=== PATIENT | female | born 1965 | race Caucasian/White ===

== ENCOUNTER → 2020-12-14 08:17 | Outpatient (CLI) | payer OTHER, SELFPAY ==
[2020-12-14 10:49] LABS: COVID19 -Nasal RAPID Negative (Negative)
== END ==
PROVIDERS: Visit Provider Nurse Practitioner
DX: Z20.822 Contact with and (suspected) exposure to COVID-19 (principal)
CPT/HCPCS: 87635

== ENCOUNTER → 2020-12-18 08:14 | Outpatient (CLI) | payer OTHER, SELFPAY ==
[2020-12-18 12:45] LABS: COVID19 -Nasal RAPID Negative (Negative)
== END ==
PROVIDERS: Visit Provider Nurse Practitioner Family
DX: Z20.822 Contact with and (suspected) exposure to COVID-19 (principal)
CPT/HCPCS: 87635

== ENCOUNTER → 2020-12-25 08:04 | Outpatient (CLI) | payer OTHER, SELFPAY ==
[2020-12-25 11:42] LABS: COVID19 -Nasal RAPID Negative (Negative)
== END ==
PROVIDERS: Visit Provider Nurse Practitioner Family
DX: Z20.822 Contact with and (suspected) exposure to COVID-19 (principal)
CPT/HCPCS: 87635

== ENCOUNTER → 2021-01-18 13:29 | Outpatient (CLI) | payer OTHER, SELFPAY | PROVIDERS: Referring Provider Internal Medicine; Visit Provider Internal Medicine | DX: Z23 Encounter for immunization (principal) | CPT/HCPCS: 90471; 90686 ==

== ENCOUNTER → 2021-03-29 11:15 | Outpatient (CLI) | payer OTHER, SELFPAY ==
[2021-03-29 11:51] LABS: COVID19 -Nasal RAPID Negative (Negative)
== END ==
PROVIDERS: Referring Provider Nurse Practitioner Family; Visit Provider Nurse Practitioner Family
DX: Z20.822 Contact with and (suspected) exposure to COVID-19 (principal)
CPT/HCPCS: 87635

== ENCOUNTER → 2022-03-20 16:08 | Outpatient (CLI) | payer OTHER, SELFPAY | PROVIDERS: Referring Provider Internal Medicine; Visit Provider Internal Medicine | DX: Z23 Encounter for immunization (principal) | CPT/HCPCS: 90471; 90686 ==

== ENCOUNTER → 2023-01-09 16:15 | Outpatient (CLI) | payer OTHER, SELFPAY | PROVIDERS: PCP Physician Assistant; Referring Provider Family Medicine; Visit Provider Family Medicine | DX: Z23 Encounter for immunization (principal) | CPT/HCPCS: 90471; 90686 ==

== ENCOUNTER 2023-01-10 04:38 | Emergency (ER) | payer OTHER, SELFPAY ==
[2023-01-10] VITALS (8 sets, daily range): BP systolic 134–185; BP diastolic 71–87; PULSE 72–88; RESP 17; TEMP 36.6; O2SAT 94–100; BMI 25.2
[2023-01-10 05:08] LABS: Add Manual Diff / Slide Review NO; Basophils Absolute Auto 100 /uL (0-100); Eosinophils Absolute Auto 300 /uL (0-450); Hematocrit 35.5 % (36-46); Hemoglobin 12.3 g/dL (12.0-16.0); Lymphocytes Absolute Auto 1800 /uL (1100-4500); Lymphocytes Percent Auto 27.8 % (25-40); Mean Corpuscular HGB Conc 34.6 % (30-36); Mean Corpuscular Hemoglobin 34.3 PG (26-34); Mean Corpuscular Volume 99.1 fL (80-100); Monocytes Absolute Auto 1000 /uL (0-900); Monocytes Percent Auto 15.7 % (3-14); Neutrophils Absolute Auto 3300 /uL (1500-7000); Neutrophils Percent Auto 51.5 % (50-75); Platelet Count 402 X10^3/uL (150-400); Red Blood Cell Count 3.58 X10^6/uL (4.0-5.2); Red Cell Distribution Width 16.7 % (11.6-14.8); White Blood Cell Count 6.4 X10^3/uL (4.5-11.0)
--- NOTE | 2023-01-10 05:15 | ED.EXTPRO ---
HPI - Extremity Problem <Sheng Espino DO - Last Filed: 01/14/23 01:33> General Chief complaint: Extremity Problem,Nontraumatic Stated complaint: massive cramps in arms, hands, feet Time Seen by Provider: 01/10/23 04:48 Source: patient Mode of arrival: Ambulatory History of Present Illness HPI Narrative: 57-year-old female nonsmoker with history of breast cancer on daily chemotherapy presents with the chief complaint of cramping in her hands neck and back. She states that she is had frequent loose stools and is concerned that her electrolytes are off, in the past she is had similar symptoms when her magnesium was low. She has been taking oral magnesium 400 mg but it has not made an impact. She denies any fever chills. She has no chest pain or shortness of breath. She denies nausea, vomiting . Related Data Home Medications Medication Instructions Recorded Confirmed capecitabine 500 mg tablet 1,000 mg PO BID 05/15/22 05/15/22 diclofenac sodium 1 % topical gel 2 g topical QID 05/15/22 05/15/22 famotidine 20 mg tablet 20 mg PO BID 05/15/22 05/15/22 letrozole 2.5 mg tablet 2.5 mg PO DAILY 05/15/22 05/15/22 levofloxacin 500 mg tablet 500 mg PO DAILY 05/15/22 05/15/22 methocarbamol 500 mg tablet 500 mg PO TID 05/15/22 05/15/22 zolpidem 5 mg tablet 5 mg PO BEDTIME PRN 05/15/22 05/15/22 Previous Rx's Medication Instructions Recorded metronidazole 0.75 % (37.5 mg/5 1 appful vaginal BEDTIME 5 days 05/15/22 gram) vaginal gel #70 grams Allergies Allergy/AdvReac Type Severity Reaction Status Date / Time hydrocodone Allergy Anxiety Verified 05/15/22 08:13 morphine Allergy Hives Verified 05/15/22 08:13 Penicillins Allergy Anaphylaxis Verified 05/15/22 08:13 Review of Systems <DO Leon Ray Last Filed: 01/14/23 01:33> Review of Systems Narrative: GENERAL: Denies chills, fatigue, malaise, fever, sweats. HEENT: Denies sinus pain, ear pain, sore throat, difficulty swallowing, dizziness. RESPIRATORY: Denies dyspnea, cough, wheezing, hemoptysis, sputum. CARDIOVASCULAR: Denies chest pain, palpitations, orthopnea, edema, GASTROINTESTINAL: see HPI : Denies dysuria, frequency, incontinence, hematuria, urinary retention. MUSCULOSKELETAL: see HPI SKIN: Denies rash, skin lesions, or other NEUROLOGIC: Denies weakness, headache, numbness, change in speech, confusion, seizures, incoordination. PSYCHIATRIC: No concerning psychosocial issues. 12 point review of systems is negative except for those stated above Patient History <Sheng Espino DO - Last Filed: 01/14/23 01:33> Medical History (Updated 01/10/23 @ 06:31 by Sheng Espino DO) Alopecia (~2021) Disease of spine (~1997) Foot pain Chicken pox (~1969) GERD (gastroesophageal reflux disease) (~1999) Diabetes mellitus (~2012) Hypertension Hyperlipidemia Breast cancer Surgical History (Updated 05/22/22 @ 19:42 by Melanie Suero) Anesthesia S/P lumpectomy, right breast (~2010) Ectopic (~1990) S/P total hysterectomy and BSO (bilateral salpingo-oophorectomy) (~2011) Social History Smoking Status: Never smoker Smoking Status: Never smoker Substance Use Type: does not use Exam <Sheng Espino DO - Last Filed: 01/14/23 01:33> Narrative Exam Narrative: GENERAL: [57] year old patient appears stated age. Well-developed patient, in mild distress. HEAD: Atraumatic. Normocephalic. EYES: Pupils equal round and reactive. Extraocular motions intact. No scleral icterus. No injection or drainage. ENT: Nose without bleeding, purulent drainage. Throat without erythema, tonsillar hypertrophy or exudate. Airway patent. NECK: Trachea midline. Non tender CARDIOVASCULAR: Regular rate and rhythm without murmurs, gallops, or rubs. RESPIRATORY: Clear to auscultation. Breath sounds equal bilaterally. No wheezes, rales, or rhonchi. GASTROINTESTINAL: Abdomen soft, non-tender, nondistended. EXTREMITIES: No edema or joint tenderness. BACK: Nontender without deformity or crepitance. No flank tenderness. NEURO: AOx3. SKIN: No rash or erythema of visible areas Initial Vital Signs Initial Vital Signs: Vital Signs Pulse Rate 88 01/10/23 04:44 Blood Pressure 185/87 H 01/10/23 04:44 Pulse Oximetry 98 01/10/23 04:44 Oxygen Delivery Method Room Air 01/10/23 04:44 <Sonia Rodriguez DO - Last Filed: 01/10/23 12:20> Initial Vital Signs Initial Vital Signs: Vital Signs Pulse Rate 88 01/10/23 04:44 Blood Pressure 185/87 H 01/10/23 04:44 Pulse Oximetry 98 01/10/23 04:44 Oxygen Delivery Method Room Air 01/10/23 04:44 Course <Sheng Espino, DO - Last Filed: 01/14/23 01:33> Orders Ordered: Discontinued Medications Heparin Sodium (Porcine) (Heparin 500 Unit/5 Ml Port Flush) 500 unit IV PRN PRN PRN Reason: Flush Last Admin: 01/10/23 06:59 Dose: 500 unit Documented By: MING Sodium Chloride (Normal Saline 0.9%) 1,000 mls @ 1,000 mls/hr IV BOLUS ONE Stop: 01/10/23 06:13 Last Infusion: 01/10/23 06:53 Dose: Infused Documented By: Admin: 01/10/23 05:25 Dose: 1,000 mls/hr Documented By: BEN POTASSIUM CHLORIDE IN WATER (Potassium Cl 10 Meq/100 Ml Marifer) 10 meq in 100 mls @ 100 mls/hr IV Q1H JAXSON Stop: 01/10/23 07:44 Last Admin: 01/10/23 07:00 Dose: Not Given Documented By: Infusion: 01/10/23 06:53 Dose: Infused Documented By: Admin: 01/10/23 05:44 Dose: 100 mls/hr Documented By: BEN Potassium Chloride (Potassium Chloride 20 Meq/15 Ml Udc) 40 meq PO NOW ONE Stop: 01/10/23 05:36 Last Admin: 01/10/23 05:46 Dose: 40 meq Documented By: BEN Vital Signs Vital signs: Vital Signs - 8 hr 01/10/23 04:44 01/10/23 04:44 01/10/23 04:45 Temperature 98 F Pulse Rate 88 84 Respiratory Rate 17 Blood Pressure 185/87 H 185/87 H Pulse Oximetry 98 99 Oxygen Delivery Method Room Air Room Air 01/10/23 04:59 01/10/23 04:59 01/10/23 05:00 Temperature Pulse Rate 84 Respiratory Rate Blood Pressure 152/78 H 143/75 H Pulse Oximetry 97 Oxygen Delivery Method Room Air 01/10/23 05:00 01/10/23 05:30 01/10/23 05:30 Temperature Pulse Rate 79 83 Respiratory Rate Blood Pressure 134/75 Pulse Oximetry 96 94 Oxygen Delivery Method Room Air Room Air 01/10/23 06:00 01/10/23 06:00 01/10/23 06:51 Temperature Pulse Rate 78 Respiratory Rate Blood Pressure 146/78 H Pulse Oximetry 96 98 Oxygen Delivery Method Room Air 01/10/23 06:52 01/10/23 06:52 Temperature Pulse Rate 72 Respiratory Rate Blood Pressure 158/71 H Pulse Oximetry 100 Oxygen Delivery Method Room Air <Sonia Rodriguez DO - Last Filed: 01/10/23 12:20> Orders Ordered: Discontinued Medications Heparin Sodium (Porcine) (Heparin 500 Unit/5 Ml Port Flush) 500 unit IV PRN PRN PRN Reason: Flush Last Admin: 01/10/23 06:59 Dose: 500 unit Documented By: MING Sodium Chloride (Normal Saline 0.9%) 1,000 mls @ 1,000 mls/hr IV BOLUS ONE Stop: 01/10/23 06:13 Last Infusion: 01/10/23 06:53 Dose: Infused Documented By: Admin: 01/10/23 05:25 Dose: 1,000 mls/hr Documented By: BEN POTASSIUM CHLORIDE IN WATER (Potassium Cl 10 Meq/100 Ml Marifer) 10 meq in 100 mls @ 100 mls/hr IV Q1H JAXSON Stop: 01/10/23 07:44 Last Admin: 01/10/23 07:00 Dose: Not Given Documented By: Infusion: 01/10/23 06:53 Dose: Infused Documented By: Admin: 01/10/23 05:44 Dose: 100 mls/hr Documented By: BEN Potassium Chloride (Potassium Chloride 20 Meq/15 Ml Udc) 40 meq PO NOW ONE Stop: 01/10/23 05:36 Last Admin: 01/10/23 05:46 Dose: 40 meq Documented By: BEN Vital Signs Vital signs: Vital Signs - 8 hr 01/10/23 04:44 01/10/23 04:44 01/10/23 04:45 Temperature 98 F Pulse Rate 88 84 Respiratory Rate 17 Blood Pressure 185/87 H 185/87 H Pulse Oximetry 98 99 Oxygen Delivery Method Room Air Room Air 01/10/23 04:59 01/10/23 04:59 01/10/23 05:00 Temperature Pulse Rate 84 Respiratory Rate Blood Pressure 152/78 H 143/75 H Pulse Oximetry 97 Oxygen Delivery Method Room Air 01/10/23 05:00 01/10/23 05:30 01/10/23 05:30 Temperature Pulse Rate 79 83 Respiratory Rate Blood Pressure 134/75 Pulse Oximetry 96 94 Oxygen Delivery Method Room Air Room Air 01/10/23 06:00 01/10/23 06:00 01/10/23 06:51 Temperature Pulse Rate 78 Respiratory Rate Blood Pressure 146/78 H Pulse Oximetry 96 98 Oxygen Delivery Method Room Air 01/10/23 06:52 01/10/23 06:52 Temperature Pulse Rate 72 Respiratory Rate Blood Pressure 158/71 H Pulse Oximetry 100 Oxygen Delivery Method Room Air MDM - Extremity (Nontraumatic) <Sheng Espino, - Last Filed: 01/14/23 01:33> Lab Data 01/10/23 05:00 01/10/23 05:00 Labs: Lab Results 01/10/23 Range/Units 05:00 WBC 6.4 (4.5-11.0) X10^3/uL RBC 3.58 L (4.0-5.2) X10^6/uL Hgb 12.3 (12.0-16.0) g/dL Hct 35.5 L (36-46) % MCV 99.1 (80-100) fL MCH 34.3 H (26-34) PG MCHC 34.6 (30-36) % RDW 16.7 H (11.6-14.8) % Plt Count 402 H (150-400) X10^3/uL Neut % (Auto) 51.5 (50-75) % Lymph % (Auto) 27.8 (25-40) % [place] % (Auto) 15.7 H (3-14) % Eos % (Auto) 4.0 (2-4) % Baso % (Auto) 1.0 (0-2) % Neut # (Auto) 3300 (4793-6570) /uL Lymph # (Auto) 1800 (1570-6190) /uL [place] # (Auto) 1000 H (0-900) /uL Eos # (Auto) 300 (0-450) /uL Baso # (Auto) 100 (0-100) /uL Sodium 138 (137-145) mmol/L Potassium 3.2 L (3.4-5.1) mmol/L Chloride 99 (98-107) mmol/L Carbon Dioxide 28 (22-32) mmol/L BUN 14 (7-17) mg/dL Creatinine 0.63 (0.52-1.04) mg/dL Estimated GFR > 60 (>60) mL/min BUN/Creatinine Ratio 22.2 H (6-22) Glucose 105 H (70-100) mg/dL Calcium 9.5 (8.4-10.2) mg/dL Magnesium 1.6 (1.6-2.3) mg/dL Total Bilirubin 0.5 (0.2-1.3) mg/dL AST 30 (14-36) IU/L ALT 34 (<35) IU/L Alkaline Phosphatase 54 (38-126) U/L Total Protein 6.9 (6.3-8.2) g/dL Albumin 4.4 (3.5-5.0) g/dL Globulin 2.5 (1.7-4.1) g/dL Albumin/Globulin Ratio 1.8 (1.0-2.8) <Sonia Rodriguez, DO - Last Filed: 01/10/23 12:20> Lab Data Labs: Lab Results 01/10/23 Range/Units 05:00 WBC 6.4 (4.5-11.0) X10^3/uL RBC 3.58 L (4.0-5.2) X10^6/uL Hgb 12.3 (12.0-16.0) g/dL Hct 35.5 L (36-46) % MCV 99.1 (80-100) fL MCH 34.3 H (26-34) PG MCHC 34.6 (30-36) % RDW 16.7 H (11.6-14.8) % Plt Count 402 H (150-400) X10^3/uL Neut % (Auto) 51.5 (50-75) % Lymph % (Auto) 27.8 (25-40) % [place] % (Auto) 15.7 H (3-14) % Eos % (Auto) 4.0 (2-4) % Baso % (Auto) 1.0 (0-2) % Neut # (Auto) 3300 (2624-9621) /uL Lymph # (Auto) 1800 (0496-0313) /uL [place] # (Auto) 1000 H (0-900) /uL Eos # (Auto) 300 (0-450) /uL Baso # (Auto) 100 (0-100) /uL Sodium 138 (137-145) mmol/L Potassium 3.2 L (3.4-5.1) mmol/L Chloride 99 (98-107) mmol/L Carbon Dioxide 28 (22-32) mmol/L BUN 14 (7-17) mg/dL Creatinine 0.63 (0.52-1.04) mg/dL Estimated GFR > 60 (>60) mL/min BUN/Creatinine Ratio 22.2 H (6-22) Glucose 105 H (70-100) mg/dL Calcium 9.5 (8.4-10.2) mg/dL Magnesium 1.6 (1.6-2.3) mg/dL Total Bilirubin 0.5 (0.2-1.3) mg/dL AST 30 (14-36) IU/L ALT 34 (<35) IU/L Alkaline Phosphatase 54 (38-126) U/L Total Protein 6.9 (6.3-8.2) g/dL Albumin 4.4 (3.5-5.0) g/dL Globulin 2.5 (1.7-4.1) g/dL Albumin/Globulin Ratio 1.8 (1.0-2.8) MDM Narrative Medical decision making narrative: dr. Andrew was not involved in patient care patient despite prior to my evaluation Discharge Plan Departure Patient Disposition: Home Clinical Impression: Acute hypokalemia, Hand cramps Instructions: DI for Hypokalemia Activity Restrictions/Additional Instructions: *You have been diagnosed with [ muscle cramps due to electrolyte abnormalities] *What to do: *Please continue to take your regular medications as directed. [ ] New medication prescriptions sent to your pharmacy: [ ] [ ] New medication written as a paper prescription [ ] No new medications given *Please follow up with your primary care provider in 2-3 days, call for an appointment. Let them know you were seen in the Emergency Department and that we ask that you be seen in follow up. We will electronically transmit a record of today's note if your PCP is in our system *If you do not have a primary care provider please contact the [facility] Resource line at [phone]. They will ask some questions about your medical history and help get you set up with a doctor in the community. *Return to Emergency Department if you should have any new, worsening or concerning symptoms, such as [fever greater than 101 F, shaking chills, worsening pain, persistent vomiting or other bothersome symptoms] Prescriptions: No Action methocarbamol 500 mg tablet 500 mg PO TID zolpidem 5 mg tablet 5 mg PO BEDTIME PRN capecitabine 500 mg tablet 1,000 mg PO BID Rx Instructions: for 14 days per 21-day cycle; must administer with water 30 minutes after a meal levofloxacin 500 mg tablet 500 mg PO DAILY famotidine 20 mg tablet 20 mg PO BID diclofenac sodium 1 % gel 2 g topical QID Rx Instructions: apply to single elbow, wrist or hand; for hand includes palm/fingers/back of hand letrozole 2.5 mg tablet 2.5 mg PO DAILY Rx Instructions: begin between days 2 and 5 of mentrual cycle metronidazole 0.75 % (37.5mg/5 gram) gel 1 appful vaginal BEDTIME 5 Days Qty: 70 3RF Referrals: Wolf Orourke PA-C [Primary Care Provider] - Stand Alone Forms: Patient Portal/API
[2023-01-10 05:23] LABS: Alanine Aminotransferase 34 IU/L (<35); Albumin 4.4 g/dL (3.5-5.0); Albumin Globulin Ratio 1.8 (1.0-2.8); Alkaline Phosphatase 54 U/L (38-126); Aspartate Aminotransferase 30 IU/L (14-36); BUN Creatinine Ratio 22.2 (6-22); Bilirubin Total 0.5 mg/dL (0.2-1.3); Blood Urea Nitrogen 14 mg/dL (7-17); Calcium 9.5 mg/dL (8.4-10.2); Carbon Dioxide 28 mmol/L (22-32); Chloride 99 mmol/L (98-107); Estimated Glomerular Filt Rate > 60 mL/min (>60); Globulin 2.5 g/dL (1.7-4.1); Glucose 105 mg/dL (70-100); HEMOLYSIS < 15 (0-50); Magnesium 1.6 mg/dL (1.6-2.3); Potassium 3.2 mmol/L (3.4-5.1); Sodium 138 mmol/L (137-145); Total Protein 6.9 g/dL (6.3-8.2)
[2023-01-10] MEDS: SODIUM CHLORIDE 0.9% 1,000 ML 1000 ML IV (05:25)
[2023-01-10] MEDS: POTASSIUM CHLORIDE IN WATER 10 MEQ/100 ML PIGGYBACK 100 MEQ IV (05:44)
[2023-01-10] MEDS: POTASSIUM CHLORIDE 20 MEQ/15 ML UDC 40 MEQ PO (05:46)
== END 2023-01-10 07:07 | disposition home or self-care (01) ==
PROVIDERS: Emergency Provider Emergency Medicine; PCP Physician Assistant
DX: E87.6 Hypokalemia (principal); R25.2 Cramp and spasm
CPT/HCPCS: 36415; 80053; 83735; 85025; 96360; 99284; J1642

== ENCOUNTER 2023-06-09 20:09 | Emergency (ER) | payer OTHER, SELFPAY ==
[2023-06-09 20:12] VITALS: BP 166/72; PULSE 92; RESP 18; TEMP 36.8; O2SAT 96; BMI 25.9
--- NOTE | 2023-06-09 20:17 | DI.RAD.S_ITS ---
PROCEDURE: XR FOOT RT MIN 3V INDICATIONS: cannot bear weight on R foot after injury yesterday TECHNIQUE: 3 views of the foot were acquired. COMPARISON: None. FINDINGS: Bones: Nondisplaced 5th proximal phalanx fracture with extension through the articular surface. No suspicious bony lesions. Plantar and dorsal calcaneal spurs. Soft tissues: No tibiotalar joint effusion. Achilles tendon appears normal. IMPRESSION: Intra-articular 5th proximal phalanx fracture. Dictated by: Selene Mcclellan M.D. on 06/09/2023 at 23:06 Approved by: Selene Mcclellan M.D. on 06/09/2023 at 23:07
--- NOTE | 2023-06-09 23:39 | ED_ITS ---
HPI - Extremity Injury (Lower) General Chief Complaint: Extremity Injury, Lower Stated Complaint: rt foot cannot bear weight Time Seen by Provider: 06/09/23 22:40 Source: patient Mode of arrival: Wheelchair History of Present Illness HPI Narrative: 58-year-old female is here for evaluation of a right foot injury. She states that she accidentally kicked an appliance it since that time has had pain in the lateral aspect of her foot and now significant bruising. It hurts for her to have any sort of weight-bearing. She is baseline neuropathy. Not on anticoagulation. Related Data Home Medications Medication Instructions Recorded Confirmed capecitabine 500 mg tablet 1,000 mg PO BID 05/15/22 05/15/22 diclofenac sodium 1 % topical gel 2 g topical QID 05/15/22 05/15/22 famotidine 20 mg tablet 20 mg PO BID 05/15/22 05/15/22 letrozole 2.5 mg tablet 2.5 mg PO DAILY 05/15/22 05/15/22 levofloxacin 500 mg tablet 500 mg PO DAILY 05/15/22 05/15/22 methocarbamol 500 mg tablet 500 mg PO TID 05/15/22 05/15/22 zolpidem 5 mg tablet 5 mg PO BEDTIME PRN 05/15/22 05/15/22 Previous Rx's Medication Instructions Recorded metronidazole 0.75 % (37.5 mg/5 1 appful vaginal BEDTIME 5 days 05/15/22 gram) vaginal gel #70 grams Allergies Allergy/AdvReac Type Severity Reaction Status Date / Time hydrocodone Allergy Anxiety Verified 05/15/22 08:13 morphine Allergy Hives Verified 05/15/22 08:13 Penicillins Allergy Anaphylaxis Verified 05/15/22 08:13 Review of Systems Constitutional Constitutional: Reports system reviewed and no additional complaints, except as documented Musculoskeletal Musculoskeletal: Reports system reviewed and no additional complaints, except as documented Integumentary/Breasts Skin/Breast: Reports system reviewed and no additional complaints, except as documented Neurologic Neurologic: Reports system reviewed and no additional complaints, except as documented Patient History Medical History Alopecia (~2021) Disease of spine (~1997) Foot pain Chicken pox (~1969) GERD (gastroesophageal reflux disease) (~1999) Diabetes mellitus (~2012) Hypertension Hyperlipidemia Breast cancer Surgical History (Updated 05/22/22 @ 19:42 by Melanie Suero) Anesthesia S/P lumpectomy, right breast (~2010) Ectopic (~1990) S/P total hysterectomy and BSO (bilateral salpingo-oophorectomy) (~2011) Social History Smoking Status: Never smoker Smoking Status: Never smoker Substance Use Type: does not use Exam Initial Vital Signs Initial Vital Signs: Vital Signs Temperature 98.2 F 06/09/23 20:12 Pulse Rate 92 H 06/09/23 20:12 Respiratory Rate 18 06/09/23 20:12 Blood Pressure 166/72 H 06/09/23 20:12 Pulse Oximetry 96 06/09/23 20:12 Oxygen Delivery Method Room Air 06/09/23 20:12 Const General: cooperative and healthy appearing Skin Other: Patient with bruising along the 4th and 5th toe in the lateral aspect of the right foot. No breaks in the skin noted. Extrem Other: Discomfort with palpation at the base of the 5th toe and also with the base of the 5th metatarsal. Procedures Orthopedic Splinting/Casting Injury #1: Side: right Lower Extremity Injury Location: foot and toe Lower Extremity Immobilizer: post-op shoe Post splinting neuro exam: no change Post splinting vascular exam: no change Placed by: Nursing Course Orders Ordered: ED Orders 06/09/23 20:17 XR foot RT min 3V Stat Vital Signs Vital signs: Vital Signs - 8 hr 06/09/23 20:12 Temperature 98.2 F Pulse Rate 92 H Respiratory Rate 18 Blood Pressure 166/72 H Pulse Oximetry 96 Oxygen Delivery Method Room Air MDM - Extremity Injury (Lower) Imaging Data Extremity x-ray #1: Radiologist's Impression: PROCEDURE: XR FOOT RT MIN 3V INDICATIONS: cannot bear weight on R foot after injury yesterday TECHNIQUE: 3 views of the foot were acquired. COMPARISON: None. FINDINGS: Bones: Nondisplaced 5th proximal phalanx fracture with extension through the articular surface. No suspicious bony lesions. Plantar and dorsal calcaneal spurs. Soft tissues: No tibiotalar joint effusion. Achilles tendon appears normal. IMPRESSION: Intra-articular 5th proximal phalanx fracture. [facility] Narrative Medical decision making narrative: Patient does have a fracture of the base of the 5th proximal phalanx of the right foot. This does correspond to the majority of the ecchymosis. She is also tender over this area. No other fractures were noted on the foot x-ray. We discussed nathalia taping the toe. Was placed in an orthopedic shoe for comfort. Discharge Plan Departure Patient Disposition: Home Clinical Impression: Fracture of toe of right foot Instructions: DI for Toe Fracture Activity Restrictions/Additional Instructions: Nathalia taping the toe can be helpful with support. The orthopedic shoes for your comfort. You can walk on your foot as tolerated. I do recommend ice and keeping your foot elevated. Return to the emergency department for new symptoms. Prescriptions: No Action methocarbamol 500 mg tablet 500 mg PO TID zolpidem 5 mg tablet 5 mg PO BEDTIME PRN capecitabine 500 mg tablet 1,000 mg PO BID Rx Instructions: for 14 days per 21-day cycle; must administer with water 30 minutes after a meal levofloxacin 500 mg tablet 500 mg PO DAILY famotidine 20 mg tablet 20 mg PO BID diclofenac sodium 1 % gel 2 g topical QID Rx Instructions: apply to single elbow, wrist or hand; for hand includes palm/fingers/back of hand letrozole 2.5 mg tablet 2.5 mg PO DAILY Rx Instructions: begin between days 2 and 5 of mentrual cycle metronidazole 0.75 % (37.5mg/5 gram) gel 1 appful vaginal BEDTIME 5 Days Qty: 70 3RF Referrals: Wolf Orourke PA-C [Primary Care Provider] - Stand Alone Forms: Patient Portal/API, Work Release Note
== END 2023-06-09 23:59 | disposition home or self-care (01) ==
PROVIDERS: Emergency Provider Emergency Medicine; PCP Physician Assistant
DX: S92.514A Nondisplaced fracture of proximal phalanx of right lesser toe(s), initial encounter for closed fracture (principal); W22.8XXA Striking against or struck by other objects, initial encounter
CPT/HCPCS: 73630; 99281; 99283

== ENCOUNTER → 2024-01-09 13:38 | Outpatient (CLI) | payer OTHER, SELFPAY | PROVIDERS: PCP Physician Assistant; Referring Provider Internal Medicine; Visit Provider Internal Medicine | DX: Z23 Encounter for immunization (principal) | CPT/HCPCS: 90471; 90656 ==